=== PATIENT | male | born 2000 | race African-American/Black ===

== ENCOUNTER 2022-03-09 17:35 | Emergency (ER) | payer SELFPAY ==
[2022-03-09] MEDS ORDERED: cefTRIAXone\\ROCEPHIN 500 MG VIAL ONE (19:14)
[2022-03-09] MEDS ORDERED: Lidocaine 1% MPF 2 ML VIAL ONE (19:14)
== END 2022-03-09 19:44 | disposition home or self-care (01) ==
LOC: CSHERS 17:35
DX: R30.0 Dysuria (principal)
CPT/HCPCS: 96372; 99283; J0696